=== PATIENT | female | born 1940 | race Hispanic/Latino ===

== ENCOUNTER 2017-02-17 09:59 | Observation (INO) | payer MEDICARE ==
[2017-02-17 10:08] VITALS: BMI 20.7
[2017-02-17 10:09] VITALS: TEMP 98.1
[2017-02-17] MEDS ORDERED: Pantoprazole 40 MG in Sodium Chloride 0.9% 100 ML IV STA (10:14)
--- NOTE | 2017-02-17 10:18 | ED PDOC ---
Arrival/HPI - General Historian: Patient <Cindy Padilla A - Last Filed: 02/17/17 16:17> <Karsten Pepper - Last Filed: 02/17/17 16:21> - General Chief Complaint: GI Problem Time Seen by Provider: 02/17/17 10:14 - History of Present Illness Narrative History of Present Illness (Text): 02/17/17 10:16 76yo female with PMHx of Epilepsy, anemia, gastritis, esophageal stricture that was reparied 30yrs ago, referred to ED by Dr. Buchanan for "dark stool". Patient states she had nonbloody diarrhea for 3days that ended 3days ago. Had another diarrhea this morning that was "dark". Denies abdominal pain, nausea, vomiting, fever, chills, urinary symptoms, chest pain, dizziness, SOB, any other complaint. She notes that she took Immodium few days ago. (Cindy Padilla A) Past Medical History - Provider Review Nursing Documentation Reviewed: Yes - Infectious Disease Hx of Infectious Diseases: None - Reproductive Menopause: Yes - Cardiac Hx Cardiac Disorders: No - Pulmonary Hx Respiratory Disorders: No - Neurological Hx Neurological Disorder: Yes Hx Seizures: Yes - HEENT Hx HEENT Disorder: Yes Other/Comment: glasses - Renal Hx Renal Disorder: No - Endocrine/Metabolic Hx Endocrine Disorders: No - Hematological/Oncological Hx Blood Disorders: No - Integumentary Hx Dermatological Disorder: No - Musculoskeletal/Rheumatological Hx Musculoskeletal Disorders: Yes Hx Herniated Disk: Yes (sx in past) Hx Unsteady Gait: Yes - Gastrointestinal Hx Gastrointestinal Disorders: Yes - Genitourinary/Gynecological Hx Genitourinary Disorders: No - Psychiatric Hx Psychophysiologic Disorder: Yes Hx Anxiety: Yes Hx Emotional Abuse: No Hx Physical Abuse: No Hx Substance Use: No - Surgical History Other/Comment: esophageal stricture sx - Anesthesia Hx Anesthesia: Yes Hx Anesthesia Reactions: No - Suicidal Assessment Feels Threatened In Home Enviroment: No <Cindy Padilla A - Last Filed: 02/17/17 16:17> Family/Social History - Physician Review Nursing Documentation Reviewed: Yes Family/Social History: Unknown Family HX Smoking Status: Never Smoked Hx Alcohol Use: No Hx Substance Use: No Hx Substance Use Treatment: No <Cindy Padilla A - Last Filed: 06/17/17 16:17> Allergies/Home Meds <Cindy Padilla A - Last Filed: 02/17/17 16:17> <Karsten Pepper - Last Filed: 02/17/17 16:21> Allergies/Adverse Reactions: Allergies No Known Allergies Allergy (Verified 02/17/17 10:03) Home Medications: Home Meds Medication Instructions Recorded Confirmed Lacosamide [Vimpat] 50 mg PO BID 08/08/12 02/17/17 ALPRAZolam [Xanax] 0.25 mg PO BID PRN 02/17/17 02/17/17 Levetiracetam [Keppra] 1,000 mg PO BID 02/17/17 02/17/17 Meloxicam [Mobic] 7.5 mg PO BID 02/17/17 02/17/17 Nortriptyline HCl [Pamelor] 10 mg PO HS 02/17/17 02/17/17 carBAMazepine [Tegretol] 200 mg PO DAILY 02/17/17 02/17/17 Review of Systems - Physician Review All systems were reviewed & negative as marked: Yes - Review of Systems Constitutional: Normal Eyes: Normal ENT: Normal Respiratory: Normal Cardiovascular: Normal Gastrointestinal: Stool Changes (Black stool), Diarrhea. absent: Abdominal Pain , Constipation, Nausea, Vomiting, Hematochezia, Hematemesis Genitourinary Female: Normal Musculoskeletal: Normal Skin: Normal Neurological: Normal Endocrine: Normal Hemo/Lymphatic: Normal Psychiatric: Normal <Cindy Padilla A - Last Filed: 02/17/17 16:17> Physical Exam Vital Signs Reviewed: Yes Temperature: Afebrile Blood Pressure: Normal Pulse: Regular Respiratory Rate: Normal Appearance: Positive for: Well-Appearing, Non-Toxic, Comfortable Pain Distress: None Mental Status: Positive for: Alert and Oriented X 3 - Systems Exam Head: Present: Atraumatic, Normocephalic Pupils: Present: PERRL Extroacular Muscles: Present: EOMI Conjunctiva: Present: Normal Mouth: Present: Moist Mucous Membranes Neck: Present: Normal Range of Motion Respiratory/Chest: Present: Clear to Auscultation, Good Air Exchange. No: Respiratory Distress, Accessory Muscle Use Cardiovascular: Present: Regular Rate and Rhythm, Normal S1, S2. No: Murmurs Abdomen: Present: Normal Bowel Sounds, Other (Soft). No: Tenderness, Distention , Peritoneal Signs, Rebound, Guarding, McBurney's Point Tender, Rovsing's Sign Present, Hernias Rectal: Present: Melena. No: Occult Blood Back: Present: Normal Inspection Upper Extremity: Present: Normal Inspection. No: Cyanosis, Edema Lower Extremity: Present: Normal Inspection. No: Edema Neurological: Present: GCS=15, CN II-XII Intact, Speech Normal Skin: Present: Warm, Dry, Normal Color. No: Rashes Psychiatric: Present: Alert, Oriented x 3, Normal Insight, Normal Concentration <Diru,Happiness A - Last Filed: 02/17/17 16:17> Medical Decision Making <Diru,Happiness A - Last Filed: 02/17/17 16:17> <Karsten Pepper - Last Filed: 02/17/17 16:21> ED Course and Treatment: 02/17/17 15:53 seen and examined with PA, documentation reviewed pt seen in the ER by Dr. Buchanan, imaging studies ordered per his request seen by Dr. Bailey, states to order repeat Hb, recommended pt dc meloxicam. Pt agrees with plan pt given option to stay in the hospital, but asked to be dc'd home instead Pt states she understands to return to the ER right away for new or worsening symptoms or for inability to f/u with PMD or specialist as instructed. Patient states that she fully agrees with and understands discharge instructions. States that she agrees with the plan and disposition. Verbalized and repeated discharge instructions and plan. I have given the patient opportunity to ask any additional questions. (Karsten Pepper) - Lab Interpretations Lab Results: 02/17/17 10:35 02/17/17 10:35 Lab Results 02/17/17 10:35: Sodium 135, Potassium 4.2, Chloride 103, Carbon Dioxide 24, Anion Gap 12, BUN 11, Creatinine 0.7, Est GFR ( Amer) > 60, Est GFR (Non- Af Amer) > 60, Random Glucose 96, Calcium 9.7, Total Bilirubin 0.5, AST 26, ALT 31, Alkaline Phosphatase 98, Lactate Dehydrogenase 476, Total Creatine Kinase 114, Troponin I < 0.01, Total Protein 6.6, Albumin 3.8, Globulin 2.9, Albumin/ Globulin Ratio 1.3, Amylase 101, Lipase 61 02/17/17 10:35: PT 10.8, INR 1.00, APTT 27.1 02/17/17 10:35: WBC 5.3, RBC 4.86, Hgb 15.3, Hct 44.4, MCV 91.4, MCH 31.5, MCHC 34.5, RDW 13.4, Plt Count 212, MPV 9.7, Gran % 58.1, Lymph % (Auto) 26.6, [place] % (Auto) 14.3 H, Eos % (Auto) 0.8 L, Baso % (Auto) 0.2, Gran # 3.10, Lymph # 1.4 , [place] # 0.8 H, Eos # 0.0, Baso # 0.01 02/17/17 10:30: Urine Color Yellow, Urine Appearance Sl cloudy, Urine pH 6.0, Ur Specific [place] 1.010, Urine Protein Negative, Urine Glucose (UA) Negative, Urine Ketones Trace H, Urine Blood Trace-intact H, Urine Nitrate Negative, Urine Bilirubin Negative, Urine Urobilinogen 0.2, Ur Leukocyte Esterase Moderate H, Urine RBC 0 - 2, Urine WBC 20 - 25, Ur Epithelial Cells 0 - 2, Urine Bacteria Large - RAD Interpretation Radiology Orders: 02/17/17 11:31 ABD & PELVIS W/O PO OR IV CONT [CT] Stat 02/17/17 12:09 ABD & PELVIS PO CONTRAST ONLY [CT] Stat - Medication Orders Current Medication Orders: Discontinued Medications Iohexol (Omnipaque 350 100 Ml) Confirm Administered Dose 350 mg .ROUTE .STK-MED ONE Stop: 02/17/17 11:26 Iohexol (Omnipaque 240 (50 Ml)) Confirm Administered Dose 50 ml .ROUTE .STK-MED ONE Stop: 02/17/17 11:26 Pantoprazole Sodium (Protonix Inj) 40 mg IVP STAT STA Stop: 02/17/17 10:21 Last Admin: 02/17/17 10:50 Dose: 40 mg ED OBSERVATION Discharge: Yes <Cindy Padilla - Last Filed: 02/17/17 16:17> Discharge: Yes Date of observation admission: 02/17/17 Time of observation admission: 10:02 <Karsten Pepper - Last Filed: 02/17/17 16:21> - Observation admission statement Patient is being placed in observation because:: Labs ordered Abdominal CT ordered Protonix ordered Will re evaluate (Cindy Padilla A) - Goals of Observation Goals of observation are:: Labs ordered Abdominal CT ordered Protonix ordered Will re evaluate (RandyHappiness A) Disposition/Present on Arrival - Present on Arrival Any Indicators Present on Arrival: No History of DVT/PE: No History of Uncontrolled Diabetes: No Urinary Catheter: No History of Decub. Ulcer: No History Surgical Site Infection Following: None - Disposition Have Diagnosis and Disposition been Completed?: Yes Patient Plan: Discharge <Cindy Padilla A - Last Filed: 02/17/17 16:17> - Present on Arrival Any Indicators Present on Arrival: No - Disposition Disposition Time: 10:02 <Karsten Pepper - Last Filed: 02/17/17 16:21> - Disposition Diagnosis: Melena Disposition: HOME/ ROUTINE Patient Problems: Current Active Problems Problem Status Onset Melena Acute Condition: GOOD
[2017-02-17 10:45] LABS: ADD MANUAL DIFF? NO
[2017-02-17 10:48] LABS: BASO # 0.01 K/mm3 (0.0-2.0); BASO % 0.2 % (0.0-3.0); EOS % 0.8 % (1.5-5.0); GRAN % 58.1 % (50.0-68.0); HEMATOCRIT 44.4 % (36.0-48.0); LYMPH # 1.4 (1.2-3.4); LYMPH % 26.6 % (22.0-35.0); MEAN CELL VOLUME 91.4 fL (80.0-105.0); MEAN CORPUSCULAR HEMOGLOBIN 31.5 pg (25.0-35.0); MEAN CORPUSCULAR HGB CONC 34.5 g/dl (31.0-37.0); MEAN PLATELET VOLUME 9.7 fl (7.0-11.0); MONO # 0.8 (0.1-0.6); MONO % 14.3 % (1.0-6.0); PLATELET COUNT 212 10^3/uL (120.0-450.0); RED CELL DISTRIBUTION WIDTH 13.4 % (11.5-14.5); WHITE BLOOD COUNT 5.3 10^3/ul (4.5-11.0)
[2017-02-17 10:57] LABS: ALB/GLOB RATIO 1.3 (1.1-1.8); ALKALINE PHOSPHATASE 98 U/L (38-133); ALT/SGPT 31 U/L (7-56); AMYLASE 101 U/L (35-125); AST/SGOT 26 U/L (15-39); BILIRUBIN,TOTAL 0.5 mg/dL (0.2-1.3); BLOOD UREA NITROGEN 11 mg/dL (7-21); CALCIUM 9.7 mg/dL (8.4-10.5); CARBON DIOXIDE 24 mmol/L (21-33); CHLORIDE 103 mmol/L (98-107); GFR AFRICAN-AMERICAN > 60; GLUCOSE,RANDOM 96 mg/dL (70-110); LIPASE 61 U/L (23-300); POTASSIUM 4.2 mmol/L (3.6-5.0); SODIUM 135 mmol/L (132-148); TOTAL PROTEIN 6.6 g/dL (5.8-8.3)
[2017-02-17 10:58] LABS: PARTIAL THROMBOPLASTIN TIME 27.1 Seconds (23.7-30.8)
[2017-02-17 11:18] LABS: TROPONIN I < 0.01 ng/mL
[2017-02-17 11:21] LABS: URINE BILIRUBIN NEGATIVE (NEGATIVE); URINE BLOOD TRACE-INTACT (NEGATIVE); URINE GLUCOSE (UA) NEGATIVE (NEGATIVE); URINE KETONE TRACE mg/dL (NEGATIVE); URINE LEUKOCYTE ESTERASE MODERATE Leu/uL (NEGATIVE); URINE PROTEIN NEGATIVE mg/dL (<30 mg/dL); URINE UROBILINOGEN 0.2 E.U./dL (<1 E.U./dL)
[2017-02-17] MEDS ORDERED: Iohexol 350 MG/100 ML VIAL ONE (11:25)
[2017-02-17] MEDS ORDERED: Iohexol 240 (50 ml) ONE (11:25)
[2017-02-17 11:27] LABS: URINE APPEARANCE SL CLOUDY (CLEAR); URINE COLOR YELLOW (YELLOW)
[2017-02-17 11:45] LABS: URINE BACTERIA LARGE (NEG); URINE EPITHELIAL CELLS 0 - 2 /hpf (0-5); URINE RBC 0 - 2 /hpf (0-2); URINE WBC 20 - 25 /hpf (0-6)
--- NOTE | 2017-02-17 12:11 | CT ---
PROCEDURE: CT Abdomen and Pelvis without Oral or IV contrast. HISTORY: diarrhea COMPARISON: CT abdomen and pelvis without oral or IV contrast performed 08/13/12 TECHNIQUE: Contiguous axial images of the abdomen and pelvis. No oral or IV contrast administered. Coronal and Sagittal reformats generated and reviewed. Radiation dose: Total exam DLP = 334.42 mGy-cm. This CT exam was performed using one or more of the following dose reduction techniques: Automated exposure control, adjustment of the mA and/or kV according to patient size, and/or use of iterative reconstruction technique. FINDINGS: There is limited evaluation of the solid organs without the administration of IV contrast. Examination also limited by paucity of intra-abdominal and intrapelvic fat. LOWER THORAX: Mild bibasilar atelectasis. There is no visible pleural effusion or pneumothorax. Moderate-sized hiatal hernia. LIVER: 6 mm coarse hepatic calcification in the left lobe, likely granuloma. Otherwise unremarkable unenhanced appearance. GALLBLADDER AND BILE DUCTS: Unremarkable unenhanced appearance. PANCREAS: Unremarkable unenhanced appearance. SPLEEN: Unremarkable unenhanced appearance. ADRENALS: Unremarkable unenhanced appearance. KIDNEYS AND URETERS: No hydronephrosis or obstructing renal calculus. BLADDER: The urinary bladder appears unremarkable. REPRODUCTIVE: Uterus is present. APPENDIX: The appendix measures approximately 7 mm in diameter, minimally dilated. No periappendiceal inflammatory changes are appreciated. BOWEL: The stomach is nondistended. Lack of oral contrast limits evaluation for bowel pathology. The bowel loops appear within normal limits of caliber without evidence of intestinal obstruction. Moderate constipation particularly involving the right and transverse colon. Diverticulosis of the rectosigmoid colon with minimal associated wall thickening; correlate clinically for possibility of acute diverticulitis. PERITONEUM: No significant free fluid. No definite free air. LYMPH NODES: No bulky lymphadenopathy identified. VASCULATURE: No aortic aneurysm. BONES: Multilevel degenerative changes. Osseous demineralization. Scoliosis convex to the right. OTHER FINDINGS: Prominent soft tissue at the level of the carlos alberto hepatis (For example series 2, image 61) may reflect adjacent duodenum and pancreatic head however this is incompletely assessed due to lack of oral and IV contrast an alternatives including adenopathy cannot be excluded. IMPRESSION: Diverticulosis of the rectosigmoid colon with minimal associated wall thickening; correlate clinically for possibility of acute diverticulitis. Moderate constipation particularly involving the right and transverse colon. The appendix measures approximately 7 mm in diameter, minimally dilated. No periappendiceal inflammatory changes are appreciated. Correlate with low blood cell count and physical exam in order to exclude possibility of acute appendicitis. Moderate hiatal hernia. Prominent soft tissue at the level of the carlos alberto hepatis may reflect adjacent duodenum and pancreatic head however this is incompletely assessed due to lack of oral and IV contrast an alternatives including adenopathy cannot be excluded. Additional findings as above.
--- NOTE | 2017-02-17 15:01 | CT ---
PROCEDURE: CT Abdomen and Pelvis without IV contrast. HISTORY: diarrhea COMPARISON: CT abdomen and pelvis without oral or IV contrast performed 02/17/17 at 1131 hours TECHNIQUE: Contiguous axial images of the abdomen and pelvis. Oral contrast was administered. No IV contrast given. Coronal and Sagittal reformats generated and reviewed. Radiation dose: Total exam DLP = 363.08 mGy-cm. This CT exam was performed using one or more of the following dose reduction techniques: Automated exposure control, adjustment of the mA and/or kV according to patient size, and/or use of iterative reconstruction technique. FINDINGS: There is limited evaluation of the solid organs without the administration of IV contrast. LOWER THORAX: Minimal basilar atelectasis. No visible pleural effusion or pneumothorax. 2 mm right lower lobe calcified granuloma. Moderate hiatal hernia. Evidence of gastroesophageal reflux. LIVER: 6 mm coarse hepatic calcification in the left lobe, likely granuloma. Otherwise unremarkable unenhanced appearance. GALLBLADDER AND BILE DUCTS: Unremarkable unenhanced appearance. PANCREAS: Unremarkable unenhanced appearance. SPLEEN: Unremarkable unenhanced appearance. ADRENALS: Unremarkable unenhanced appearance. KIDNEYS AND URETERS: No hydronephrosis or obstructing renal calculus. BLADDER: The urinary bladder appears unremarkable. REPRODUCTIVE: Uterus is present. APPENDIX: Presumed appendix appears within normal limits of caliber. No secondary signs of acute appendicitis. BOWEL: The stomach is nondistended. The bowel loops appear within normal limits of caliber without evidence of intestinal obstruction. Moderate constipation particularly involving the right and transverse colon. Diverticulosis of the rectosigmoid colon with minimal associated wall thickening; correlate clinically for possibility of acute diverticulitis. PERITONEUM: No significant free fluid. No definite free air. LYMPH NODES: No bulky lymphadenopathy identified. VASCULATURE: No aortic aneurysm. BONES: Osseous mineralization. Multilevel degenerative changes. Scoliosis convex to the right. OTHER FINDINGS: Prominent soft tissue at the level of the carlos alberto hepatis described on prior study appears less evident on the current examination however oral contrast is not present within the duodenum at this level which limits evaluation. IMPRESSION: Moderate constipation particularly involving the right and transverse colon. Diverticulosis of the rectosigmoid colon with minimal associated wall thickening; correlate clinically for possibility of acute diverticulitis. Prominent soft tissue at the level of the carlos alberto hepatis described on prior study appears less evident on the current examination however oral contrast is not present within the duodenum at this level which limits evaluation. Moderate-sized hiatal hernia. Additional findings as above.
[2017-02-17 15:53] LABS: ADD MANUAL DIFF? NO
[2017-02-17 15:57] LABS: BASO # 0.01 K/mm3 (0.0-2.0); BASO % 0.2 % (0.0-3.0); EOS # 0.1 (0.0-0.7); GRAN # 1.85 (1.4-6.5); GRAN % 37.3 % (50.0-68.0); HEMATOCRIT 46.8 % (36.0-48.0); LYMPH # 2.3 (1.2-3.4); LYMPH % 46.2 % (22.0-35.0); MEAN CELL VOLUME 91.4 fL (80.0-105.0); MEAN CORPUSCULAR HEMOGLOBIN 31.4 pg (25.0-35.0); MEAN CORPUSCULAR HGB CONC 34.4 g/dl (31.0-37.0); MEAN PLATELET VOLUME 9.9 fl (7.0-11.0); MONO # 0.7 (0.1-0.6); MONO % 14.3 % (1.0-6.0); PLATELET COUNT 240 10^3/uL (120.0-450.0); RED CELL DISTRIBUTION WIDTH 13.4 % (11.5-14.5)
[2017-02-17 16:46] VITALS: BP 150/87; PULSE 88; RESP 16; O2SAT 97
--- NOTE | 2017-02-17 21:42 | CON ---
DATE: 02/17/2017 This patient was seen and evaluated in the Emergency Room. I did discuss with Dr. Buchanan earlier and also with the ER physician. This 76-year-old patient has noticed episodes of loose bowel movements for the past 2 days. Initially, she said her bowel movements have been like a brown stool loose. Augustina comer took some Imodium. This morning, today she noticed dark stool. 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 She said this is definitely new with black stool. She was very worried about the bleeding and came to the Emergency Room. No complaints of any vomiting. No complaints of any bright red blood per rectum. No similar episodes in the past. PAST MEDICAL HISTORY: Other past medical history is significant for seizure disorder, hypertension, history of peptic ulcer disease, has esophageal stricture dilation in the past. ALLERGIES: No known drug allergy. The patient's medication also include Mobic, which she has been t aking for arthritis. MEDICATIONS: List reviewed. SOCIAL HISTORY: Denies smoking or alcohol. FAMILY HISTORY: Review of the family history is noncontributory. 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 The patient presently lives alone. PHYSICAL EXAMINATION: GENERAL: The patient is lying on the bed, not in acute distress. VITAL SIGNS: Pulse 88, blood pressure 150/87, respirations 16, O2 saturation 97. HEENT: Atraumatic, anicteric. NECK: Supple. HEART: S1, S2 heard. LUNGS: Bilateral air entry present. ABDOMEN: Soft. There was no tenderness. EXTREMITIES: No edema. RECTAL Examination was done by the ER before and the stool for occult blood was told it was negative. LABORATORY DATA: Hemoglobin 15.3, hematocrit 44.4, WBC is 5.3, platelets 212. Chemistry is essentia lly unremarkable. The patient did have a CT scan of the abdomen and pelvis with only p.o. contrast d one which was reported moderate constipation involving the right and left and the transverse colon. Diverticulosis and some mild thickening in the rectosigmoid area, prominent soft tissue at the level of the carlos alberto hepatis. Hiatus hernia. 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 The concern about gastrointestinal bleeding. The patient had episodes of loose bowel movements pr ior to that, but brown in color. Most likely need rule out upper gastrointestinal bleeding. The pat kiki has been also taking nonsteroidal anti-inflammatory drugs, Mobic, for her arthritis. History of peptic ulcer disease, has an esophageal stricture in the past, dilation done in the past. The diffe rential diagnosis of the black stools should include melena, gastrointestinal bleeding, rule out pept ic ulcer disease, erosive esophagitis and right colonic lesion also to be considered. The patient di d have repeat blood count done, showed 6.3. I have a repeat CBC done while in the ER. It showed a h emoglobin in fact had gone up to 16.1. No further episodes of black stool noticed. The patient andi ins totally asymptomatic and the patient was offered admission for observation. The patient wants to go home. She said she is fully aware that if there is any further bleeding she will come back to [facility] Emergency Room. The patient was advised to take liquid diet at least for a day or 2 and a monitor the stool very closely. Advised to take omeprazole 40 mg daily. The patient would benefit from uppe r GI endoscopy. Advised to come to the Emergency Room. The patient would benefit from the MRI as an outpatient with and without contrast to further evaluate the carlos alberto hepatis area. I had a detailed discussion with the patient, with Dr. Buchanan. Thank you very much for allowing us to participate in the care of the patient. Israel Bailey MD cc: [id number] TT: 02/17/2017 21:40:56 Confirmation # [id number] Dictation # [id number] [email or web address]
== END 2017-02-17 16:18 | disposition home or self-care (01) ==
LOC: ED 09:59 → EROBSV 12:29
PROVIDERS: ADMIT Emergency Medicine; ATTEND Emergency Medicine
DX: K92.1 Melena (principal)
CPT/HCPCS: 74176; 80053; 81001; 82150; 82550; 83615; 83690; 84484; 85025; 85610; 85730; 87086; 87181; 96374; 99285; C9113; G0378; Q9966

== ENCOUNTER 2017-03-08 06:58 | Day surgery (SDC) | payer MEDICARE ==
[2017-02-26 13:45] VITALS: BMI 21.4
[2017-03-08] MEDS ORDERED: Propofol 10 mg/ml Inj (20 ML) ONE (09:35)
[2017-03-08] MEDS ORDERED: Sodium Chloride 0.9% 1,000 ML IV SCH (10:00)
[2017-03-08 10:05] VITALS: O2SAT 99
[2017-03-08 10:50] VITALS: BP 150/82; PULSE 75; RESP 18; TEMP 97.7
== END 2017-03-08 11:11 | disposition home or self-care (01) ==
LOC: ENDO 06:58
PROVIDERS: ATTEND Internal Medicine Gastroenterology
DX: K92.2 Gastrointestinal hemorrhage, unspecified (principal); K29.50 Unspecified chronic gastritis without bleeding; K22.8 Other specified diseases of esophagus; K44.9 Diaphragmatic hernia without obstruction or gangrene
CPT/HCPCS: 43239; 88305; 88312; 88342; J2704; J7040 ×2

== ENCOUNTER 2017-04-10 10:17 | Day surgery (SDC) | payer MEDICARE ==
[2017-04-02 11:51] VITALS: BMI 22.1
[2017-04-10] MEDS ORDERED: Propofol 10 mg/ml Inj (20 ML) ONE ×2 (11:58→12:19)
[2017-04-10] MEDS ORDERED: Lidocaine 1% Inj (20ml) ONE (12:07)
[2017-04-10] MEDS ORDERED: Sodium Chloride 0.9% 1,000 ML IV SCH (13:00)
[2017-04-10 14:17] VITALS: BP 145/77; PULSE 71; RESP 16; TEMP 97.4; O2SAT 100
== END 2017-04-10 14:32 | disposition home or self-care (01) ==
LOC: ENDO 10:17
PROVIDERS: ATTEND Internal Medicine Gastroenterology
DX: C18.7 Malignant neoplasm of sigmoid colon (principal); D12.0 Benign neoplasm of cecum; K52.831 Collagenous colitis; K57.30 Diverticulosis of large intestine without perforation or abscess without bleeding; K64.8 Other hemorrhoids; K63.89 Other specified diseases of intestine; R19.7 Diarrhea, unspecified
CPT/HCPCS: 45380; 45381; 45385; 88305; 88342; J2704; J7040 ×2